=== PATIENT | female | born 1975 | race Hispanic/Latino ===

== ENCOUNTER 2017-12-12 04:29 | Emergency (ER) | payer OTHER ==
[2017-12-12 04:30] VITALS: BMI 38.2
[2017-12-12 04:44] VITALS: TEMP 98.1
[2017-12-12 05:06] VITALS: RESP 12; O2SAT 98
--- NOTE | 2017-12-12 06:02 | ED PDOC ---
Arrival/HPI - General Chief Complaint: Anxiety Time Seen by Provider: 12/12/17 05:57 Historian: Patient - History of Present Illness Narrative History of Present Illness (Text): 12/12/17 06:02 42 year old female, with past medical history of asthma, depression, and anxiety , presents to the Emergency department complaining of anxiety since prior to arrival. Patient informs "palpitations" and worries she is having a panic attack. Patient informs similar symptoms in the past and states compliance with her medication. Patient denies any fever, chills, nausea, vomiting, diarrhea, abdominal pain, chest pain, shortness of breath or any other complaints. Patient presents to the Emergency department for medical evaluation. PMD: Dr. Anderson Time/Duration: Prior to Arrival Symptom Onset: Gradual Symptom Course: Improving Activities at Onset: Light Context: Home Past Medical History - Provider Review Nursing Documentation Reviewed: Yes - Past History Past History: Non-Contributing - Tetanus Immunization Tetanus Immunization: Unknown - Cardiac Hx Pacemaker: No - Pulmonary Hx Asthma: Yes - Neurological Hx Paralysis: No - Hematological/Oncological Hx Blood Transfusions: No Hx Blood Transfusion Reaction: No - Musculoskeletal/Rheumatological Hx Musculoskeletal Disorders: No - Psychiatric Hx Emotional Abuse: No Hx Physical Abuse: No Hx Substance Use: No - Past Surgical History Past Surgical History: No Previous - Surgical History Hx Cholecystectomy: Yes Hx Gastric Bypass Surgery: Yes (11/2011) - Anesthesia Hx Anesthesia Reactions: No Hx Malignant Hyperthermia: No - Suicidal Assessment Feels Threatened In Home Enviroment: No Family/Social History - Physician Review Nursing Documentation Reviewed: Yes Family/Social History: No Known Family HX Smoking Status: Never Smoked Hx Alcohol Use: Yes (SOCIAL ON OCCASION) Hx Substance Use: No Hx Substance Use Treatment: No Allergies/Home Meds Allergies/Adverse Reactions: Allergies acetaminophen [From Percocet] Adverse Reaction (Severe, Verified 12/12/17 05:04) UPSET STOMACH oxycodone HCl [From Percocet] Adverse Reaction (Severe, Verified 12/12/17 05:04) UPSET STOMACH Home Medications: Home Meds Medication Instructions Recorded Confirmed Desvenlafaxine Succinate [Pristiq] 100 mg PO HS 12/20/14 12/12/17 Clonazepam [Klonopin] 0.5 mg PO BID 03/17/16 12/12/17 Montelukast [Singulair] 10 mg PO HS 03/17/16 12/12/17 Omeprazole 40 mg PO QAM 03/17/16 12/12/17 Topiramate [Topamax] 100 mg PO HS 03/17/16 12/12/17 Review of Systems - Physician Review All systems were reviewed & negative as marked: Yes - Review of Systems Constitutional: Normal. absent: Fevers Eyes: Normal ENT: Normal Respiratory: Normal. absent: SOB Cardiovascular: Normal. absent: Chest Pain Gastrointestinal: Normal. absent: Abdominal Pain, Diarrhea, Nausea, Vomiting Genitourinary Female: Normal Musculoskeletal: Normal Skin: Normal Neurological: Normal Endocrine: Normal Hemo/Lymphatic: Normal Psychiatric: Anxiety Physical Exam Vital Signs Reviewed: Yes Vital Signs Temp Pulse Resp BP Pulse Ox 12/12/17 06:00 89 12 118/67 98 12/12/17 05:05 98.1 F 92 H 12 119/69 98 12/12/17 04:34 98.1 F 106 H 18 124/82 99 Temperature: Afebrile Blood Pressure: Normal Pulse: Tachycardic Respiratory Rate: Normal Appearance: Positive for: Well-Appearing, Non-Toxic, Comfortable Pain Distress: None Mental Status: Positive for: Alert and Oriented X 3 - Systems Exam Head: Present: Atraumatic, Normocephalic Pupils: Present: PERRL Extroacular Muscles: Present: EOMI Conjunctiva: Present: Normal Mouth: Present: Moist Mucous Membranes Neck: Present: Normal Range of Motion Respiratory/Chest: Present: Clear to Auscultation, Good Air Exchange. No: Respiratory Distress, Accessory Muscle Use Cardiovascular: Present: Regular Rate and Rhythm, Normal S1, S2. No: Murmurs Abdomen: No: Tenderness, Distention, Peritoneal Signs Back: Present: Normal Inspection Upper Extremity: Present: Normal Inspection. No: Cyanosis, Edema Lower Extremity: Present: Normal Inspection. No: Edema Neurological: Present: GCS=15, CN II-XII Intact, Speech Normal Skin: Present: Warm, Dry, Normal Color. No: Rashes Psychiatric: Present: Alert, Oriented x 3, Anxious Medical Decision Making ED Course and Treatment: 12/12/17 06:05 Impression: 42 year old female presents to the Emergency department for anxiety. Differential Diagnosis included but are not limited to: anxiety Plan: -- Reassess and disposition Prior Visits: Notes and results from previous visits were reviewed. Progress Notes: - Scribe Statement The provider has reviewed the documentation as recorded by the Scribe Jeramie Bettencourt. All medical record entries made by the Scribe were at my direction and personally dictated by me. I have reviewed the chart and agree that the record accurately reflects my personal performance of the history, physical exam, medical decision making, and the department course for this patient. I have also personally directed, reviewed, and agree with the discharge instructions and disposition. Disposition/Present on Arrival - Present on Arrival Any Indicators Present on Arrival: No History of DVT/PE: No History of Uncontrolled Diabetes: No Urinary Catheter: No History of Decub. Ulcer: No History Surgical Site Infection Following: None - Disposition Have Diagnosis and Disposition been Completed?: Yes Diagnosis: Anxiety Disposition: HOME/ ROUTINE Disposition Time: 06:30 Condition: GOOD Discharge Instructions (ExitCare): Anxiety, Adult (DC) Referrals: Vane Anderson MD [Primary Care Provider] - Follow up with primary Forms: Estrogen Gene Test (Czech)
[2017-12-12 06:12] VITALS: BP 118/67; PULSE 89
== END 2017-12-12 06:10 | disposition home or self-care (01) ==
LOC: ED 04:29
DX: F41.9 Anxiety disorder, unspecified (principal)